=== PATIENT | male | born 1955 | race Caucasian/White ===

== ENCOUNTER 2019-09-11 12:55 | Inpatient (IN) | payer BC ==
[2019-09-11] MEDS ORDERED: Sodium Chloride 0.9% 10 ML ONE (13:35)
[2019-09-11 13:46] LABS: #Eosinphils 0.1 thou/uL (0.0-0.7); #Lymphocytes 1.4 thou/uL (1.20-3.40); #Monocytes 0.6 thou/uL (0.11-0.59); #Neutrophils 3.4 thou/uL (1.40-6.50); %Basophils 0.8 % (0.0-1.0); %Eosinophils 2.2 % (0.0-10.0); %Lymphocytes 25.5 % (21.0-51.0); %Monocytes 10.4 % (0.0-10.0); %Neutrophils 61.1 % (42.0-75.0); Hemoglobin 12.1 g/dL (14.0-18.0); Mean Corpuscular HGB CONC 32.9 g/dL (32.0-36.0); Mean Corpuscular Hemoglobin 31.1 pg (27.0-31.0); Mean Corpuscular Volume 94.5 fL (78.0-98.0); Mean Platelet Volume 5.9 fL (7.4-10.4); Platelet Count 379 thou/uL (130-400); RBC Distribution Width 12.8 % (11.5-14.5); Red Blood Cell (RBC) Count 3.87 mill/uL (4.70-6.10); White Blood Cell (WBC) Count 5.5 thou/uL (4.8-10.8)
[2019-09-11] MEDS ORDERED: Piperacillin/Tazobactam 3.375 GM in Sodium Chloride 0.9% 100 ML IVPB SCH (14:00)
[2019-09-11 14:08] LABS: ALT (SGPT) 16 U/L (8-55); AST (SGOT) 17 U/L (5-34); Albumin 3.7 g/dL (3.4-4.8); Alkaline Phosphatase 146 U/L (40-110); Anion Gap 12 mmol/L (10-20); BUN (Urea Nitrogen) 9 mg/dL (8.4-25.7); Bilirubin, Total 0.2 mg/dL (0.2-1.2); Calc. Creatinine Clearance 0 mL/min (70-130); Calcium 8.8 mg/dL (7.8-10.44); Carbon Dioxide 27 mmol/L (23-31); Chloride 102 mmol/L (98-107); Estimated GFR-MDRD 87; Glucose 113 mg/dL (80-115); Protein, Total 7.7 g/dL (5.8-8.1); Sodium 137 mmol/L (136-145)
[2019-09-11 14:11] VITALS: BMI 21.8
[2019-09-11] MEDS ORDERED: Vancomycin HCl 1 GM in Premix Bag 1 BAG IVPB SCH (15:00)
[2019-09-11] MEDS ORDERED: PROPOFOL 200 MG/20 ML VIAL ONE (16:23)
[2019-09-11] MEDS ORDERED: Lidocaine 1% PF 5 ML VIAL ONE (16:23)
[2019-09-11] MEDS ORDERED: Ondansetron PF 4 MG/2 ML Vial ONE (16:23)
[2019-09-11] MEDS ORDERED: Dexamethasone 20 MG/5 ML VIAL ONE (16:23)
[2019-09-11] MEDS ORDERED: Piperacillin/Tazobactam 3.375 GM VIAL ONE (19:46)
[2019-09-11] MEDS ORDERED: Sodium Chloride 0.9% 100 ML ONE (19:47)
[2019-09-11] MEDS ORDERED: Midazolam HCl 2 mg/2 ml Vial ONE (20:25)
[2019-09-11] MEDS ORDERED: Fentanyl 100 MCG/2 ML VIAL ONE ×3 (20:25→22:45)
[2019-09-11] MEDS ORDERED: Neomycin-Polymyxin 1 ML AMP ONE (20:34)
[2019-09-11] MEDS ORDERED: Ondansetron HCl/PF 4 MG/2 ML Vial IVP PRN (22:17)
[2019-09-11] MEDS ORDERED: Meperidine HCl/PF 25 MG/ML VIAL SLOW IVP PRN (22:17)
[2019-09-11] MEDS ORDERED: Promethazine HCl 25 MG/ML VIAL SLOW IVP PRN (22:17)
[2019-09-11] MEDS ORDERED: HYDROcodone/Acetaminophen 10/325 mg Tablet PO PRN (22:19)
[2019-09-11] MEDS ORDERED: Ondansetron ODT 4 MG TAB PO PRN (22:20)
[2019-09-11] MEDS ORDERED: Fentanyl 100 MCG/2 ML VIAL SLOW IVP PRN (22:20)
[2019-09-11] MEDS ORDERED: Ondansetron PF 4 MG/2 ML Vial IVP PRN (22:20)
[2019-09-11] MEDS ORDERED: Acetaminophen 500 MG TAB PO PRN (22:21)
[2019-09-12] MEDS: Piperacillin/Tazobactam 3.375 GM in Sodium Chloride 0.9% 100 ML IVPB SCH ×6 (00:23→18:42)
[2019-09-12] MEDS: HYDROcodone/Acetaminophen 10/325 mg Tablet PO PRN ×2 (08:20→18:42)
[2019-09-12] MEDS: Vancomycin HCl 1 GM in Premix Bag 1 BAG IVPB SCH ×2 (08:21→20:01)
[2019-09-12] MEDS ORDERED: FLU VACC QS2019-20(6MOS UP)/PF 60 MCG/0.5 ML SYRINGE IM ONE (09:00)
--- NOTE | 2019-09-12 18:35 | OP ---
DATE OF PROCEDURE: 09/11/2019 PREOPERATIVE DIAGNOSIS: Right anterior tibial wound dehiscence. POSTOPERATIVE DIAGNOSIS: Right anterior tibial wound dehiscence. PROCEDURES PERFORMED: 1. Irrigation and debridement of right anterior tibial wound, (skin, subcutaneous tissue, and muscle). 2. Musculotendinous soft tissue advancement over exposed right anterior tibial plate. ANESTHESIA: General. TRUCK DRIVING: Carol Rojas PA-C. TOURNIQUET TIME: Zero. ESTIMATED BLOOD LOSS: 10 mL. COMPLICATIONS: None. DRAINS: None. SPECIMEN: Swab sent for Gram stain, culture, and sensitivity. OUTCOME: Successful debridement of necrotic tissue. INDICATIONS: Mr. Cortes is a pleasant 63-year-old gentleman, status post a right comminuted proximal tibia fracture, which was treated initially with a spanning external fixator and fasciotomies for compartment syndrome. The patient subsequently had his fasciotomy skin incisions closed and was converted to a plate with the external fixator removed. Over the last few days, the patient has had some increasing drainage and breakdown of one of the skin incision sites from the original external fixator. Upon arrival in our clinic today, he was found to have an area that measured approximately 2 cm in length and a centimeter wide of fibrinous exudate and some drainage. As such, the patient was taken the operating room now for exploration and debridement of this wound. Informed consent has been obtained and I believe, all questions answered. DESCRIPTION OF PROCEDURE: The patient was brought to the operating room and a time-out performed followed by induction of general anesthesia. Next, he was positioned supine on the OR table and a sterile prep and drape was performed of the right lower extremity. This 2 x 1 cm area was remarkable for significant fibrinous exudate, but no purulent material was encountered. The exudate was sharply debrided. This including skin, subcutaneous tissue, down to the level of the musculotendinous region of the tibialis anterior. Once all of the fibrinous exudate had been sharply debrided, the plate was visible along this lateral cortex of the midshaft tibia. No purulent material was encountered. There was serous fluid encountered. This was swabbed and sent for Gram stain, culture, and sensitivity. Following debridement of all the nonviable tissue, there was bleeding of the skin edges and bleeding at the base; however, still this exposed plate. As such, the tibialis anterior tendon was advanced and stitched to the periosteum and fascial rim off the subcutaneous crest of the tibia. This performed to get some soft tissue closure over the plate. At the completion of this, a damp-to-dry dressing was then placed in this void, that was left over with plans to convert the patient to a wound VAC tomorrow. Following application of a damp-to-dry dressing, a bulky dressing applied to the leg and then the patient was transferred to recovery room in stable condition. There were no complications. He tolerated the procedure well. Job ID: [id number]
[2019-09-13 08:18] LABS: #Eosinphils 0.2 thou/uL (0.0-0.7); #Lymphocytes 1.9 thou/uL (1.20-3.40); #Monocytes 0.6 thou/uL (0.11-0.59); #Neutrophils 3.5 thou/uL (1.40-6.50); %Basophils 0.8 % (0.0-1.0); %Eosinophils 3.8 % (0.0-10.0); %Lymphocytes 30.4 % (21.0-51.0); %Monocytes 9.3 % (0.0-10.0); %Neutrophils 55.7 % (42.0-75.0); Hemoglobin 12.1 g/dL (14.0-18.0); Mean Corpuscular HGB CONC 32.2 g/dL (32.0-36.0); Mean Corpuscular Hemoglobin 30.6 pg (27.0-31.0); Mean Platelet Volume 6.2 fL (7.4-10.4); Platelet Count 338 thou/uL (130-400); RBC Distribution Width 12.7 % (11.5-14.5); Red Blood Cell (RBC) Count 3.94 mill/uL (4.70-6.10); White Blood Cell (WBC) Count 6.4 thou/uL (4.8-10.8)
[2019-09-13] MEDS: Piperacillin/Tazobactam 3.375 GM in Sodium Chloride 0.9% 100 ML IVPB SCH ×2 (18:13→23:07)
[2019-09-13] MEDS: traMADol HCl 50 MG TAB PO PRN (23:13)
[2019-09-14] MEDS: Piperacillin/Tazobactam 3.375 GM in Sodium Chloride 0.9% 100 ML IVPB SCH (05:23)
[2019-09-14 07:27] VITALS: TEMP 98
[2019-09-14] MEDS ORDERED: Doxycycline 100 MG CAP PO SCH ×4 (11:00→21:00)
[2019-09-14] MEDS ORDERED: Rifampin 300 MG CAP PO SCH ×2 (11:15→21:00)
[2019-09-14 11:27] VITALS: BP 124/73
[2019-09-14] MEDS: traMADol HCl 50 MG TAB PO PRN (11:42)
[2019-09-15] MEDS ORDERED: Rifampin 300 MG CAP PO ONE (22:00)
--- NOTE | 2019-09-17 04:01 | PQF ---
RAJESH PATTERSON ANTHONY, MD [id number] [facility] A [id number] CLINICAL DOCUMENTATION CLARIFICATION FORM: POST DISCHARGE Addendum to original discharge summary date: ____ Late entry note date: __ DATE: 09/17/19 ATTN:Katya Solorzano Please exercise your independent, professional judgment in responding to the clarification form. Clinical indicators are provided on the bottom of this form for your review Please check appropriate box(s): [ ] Excisional Debridement: [ ] Excised [ ] Cut away [ ] Other: Depth / layer: (deepest layer of debridement): [ ] Skin[ ] SubQ Tissue [ ] Fascia [ ] Muscle [ ] Tendon [ ] Bone Appearance of wound: (e.g., down to fresh bleeding tissue, etc.)___ Margins: (please specify): / x x Instruments used: [ ] Scissors [ ] Scalpel [ ] Curette [ ] Soft tissue clipper [ ] Other: [ ] Non-excisional Debridement: (Removal by flushing, brushing, chemical, or washing) Depth / layer: (deepest layer of debridement): [ ] Skin[ ] Subcutaneous [ ] Fascia [ ] Muscle [ ] Tendon [ ] Bone [ ] Incision and Drainage only (No Debridement): Depth:[ ] Skin [ ] Subcutaneous [ ] Fascia [ ] Muscle [ ] Tendon [ ] Bone [ ] Other procedure diagnosis [ ] Unable to determine For continuity of documentation, please document condition throughout progress notes and discharge summary. Thank You. CLINICAL INDICATORS - SIGNS / SYMPTOMS / LABS OP Note 09/11 "the exudate was sharply debrided" OP Note 09/11 "This including skin,subcutaneous tissue, down to the level of musculotenious region" OP Note 09/11 "patient has had some increasing drainage and breakdonw of one of the skin incision sites from the original external fixator" OP Note 10 "Irrigation and debridement of tibial wound (skin, subcutaneous tissue and muscle)" RISK FACTORS OP Note 09/11-63 years old OP Note 09/11-s/p external fixator OP Note 09/11-tibial wound dehiscence TREATMENTS: OP Note 09/11-Irrigation and debridement (This form is maintained as a part of the permanent medical record) 2015 [email or web address] All Rights Reserved [email or web address] [not provided] MTDD
--- NOTE | 2019-09-17 14:39 | DIS ---
DATE OF ADMISSION: 09/11/2019 DATE OF DISCHARGE: 09/14/2019 This is Carol Rojas PA-C dictating a report for Rashad Aldana MD. CONSULTANTS: Include Wound Care. PREOPERATIVE DIAGNOSIS: Right anterior tibial wound dehiscence. POSTOPERATIVE DIAGNOSIS: Right anterior tibial wound dehiscence. PROCEDURES PERFORMED: 1. Irrigation and debridement of right anterior tibial wound, including skin, subcutaneous tissue, and muscle. 2. Musculotendinous soft tissue advancement over exposed right anterior tibial plate. BRIEF HOSPITAL COURSE: This is a 63-year-old gentleman, who is status post right comminuted tibial fracture, who was initially treated with a spanning external fixator and fasciotomies for compartment syndrome. The patient subsequently had his fasciotomy skin incisions closed and then was converted to a plate with the external fixator removed. Over the last few days, the patient had some increasing drainage and breakdown of one of the skin incision sites from the original external fixator. Upon arrival to our clinic on the date of admission, the patient was found to have an area that measured approximately 2 cm in length and a centimeter wide of fibrinous exudate and some drainage. The patient was taken to the operating room for exploration and debridement of the wound. He did well in the operative suite. Postoperatively, he was admitted to [place] [address] surgical floor, where he received postoperative antibiotics and we awaited his cultures to grow out. He ended up growing out Staph aureus and was placed on p.o. antibiotics for discharge home. No complications were incurred during this hospital stay. The patient remained touchdown weightbearing in a boot for his right healing tibia fracture. The patient had a wound VAC during his hospital course. This was approved for continued home treatment. DISCHARGE DISPOSITION: Home. DISCHARGE CONDITION: Stable. DISCHARGE MEDICATIONS: See JAN. DISCHARGE INSTRUCTIONS: The patient will take antibiotics as prescribed. He was discharged with doxycycline and rifampin. He will keep his wound VAC intact until followup. We will see him in the Orthopedic Clinic in 1 week. Job ID: [id number]
== END 2019-09-14 12:10 | disposition home or self-care (01) | DRG 909 ==
LOC: SDC/OP 12:55 → 3SE 13:01 → SURG A 23:59 → SDC/OP 23:59
PROVIDERS: ADMIT Orthopaedic Surgery; ATTEND Orthopaedic Surgery
PROC: 0LXN0ZZ Transfer Right Lower Leg Tendon, Open Approach (ICD-10-PCS; principal; 2019-09-11)
PROC: 0KDS0ZZ Extraction of Right Lower Leg Muscle, Open Approach (ICD-10-PCS; 2019-09-11)
PROC: 3E02340 Introduction of Influenza Vaccine into Muscle, Percutaneous Approach (ICD-10-PCS; 2019-09-12)
DX: T81.30XA Disruption of wound, unspecified, initial encounter (principal); Y83.8 Other surgical procedures as the cause of abnormal reaction of the patient, or of later complication, without mention of misadventure at the time of the procedure; Z23 Encounter for immunization; B95.61 Methicillin susceptible Staphylococcus aureus infection as the cause of diseases classified elsewhere; E78.5 Hyperlipidemia, unspecified
CPT/HCPCS: 36415; 80053; 85025; 87070; 87077; 87186; 87205; J1100; J2001; J2250; J2405; J2543; J2704; J3010; J3370; J3490

== ENCOUNTER 2019-09-16 13:43 | Emergency (ER) | payer BC ==
--- NOTE | 2019-09-16 14:54 | ULT ---
ULTRASOUND DOPPLER DUPLEX VENOUS RIGHT LOWER EXTREMITY: DATE: 09/16/2019 HISTORY: 63-year-old male with right lower extremity swelling and edema. TECHNIQUE: Grayscale, color-flow, and spectral analysis, of major veins of right lower extremity. FINDINGS: There is demonstration of blood flow with normal compressibility, of the right common femoral, profun da femoral, greater saphenous, femoral, popliteal, and posterior tibial, veins. In the soft tissues at the medial knee, corresponding to the palpable lump, there is an irregularly-shaped heterogeneousl y mildly hypoechoic solid mass with no internal blood flow measuring approximately 3.5 x 3.5 x 1.5 cm. There is surrounding soft tissue edema. IMPRESSION: 1. No deep venous thrombosis of right lower extremity. 2. Mass in the soft tissues at medial aspect of knee surrounded by soft tissue edema. Given history o f recent surgery, this is presumed to represent hematoma.
[2019-09-16 15:25] LABS: #Basophils 0.1 thou/uL (0.0-0.2); #Eosinphils 0.3 thou/uL (0.0-0.7); #Lymphocytes 1.3 thou/uL (1.20-3.40); #Monocytes 0.6 thou/uL (0.11-0.59); #Neutrophils 4.3 thou/uL (1.40-6.50); %Eosinophils 4.8 % (0.0-10.0); %Lymphocytes 19.3 % (21.0-51.0); %Neutrophils 64.9 % (42.0-75.0); Hemoglobin 12.6 g/dL (14.0-18.0); Mean Corpuscular HGB CONC 32.4 g/dL (32.0-36.0); Mean Corpuscular Hemoglobin 29.8 pg (27.0-31.0); Mean Corpuscular Volume 92.1 fL (78.0-98.0); Mean Platelet Volume 5.7 fL (7.4-10.4); Platelet Count 338 thou/uL (130-400); RBC Distribution Width 12.9 % (11.5-14.5); Red Blood Cell (RBC) Count 4.22 mill/uL (4.70-6.10); White Blood Cell (WBC) Count 6.6 thou/uL (4.8-10.8)
[2019-09-16 15:37] LABS: Anion Gap 16 mmol/L (10-20); BUN (Urea Nitrogen) 12 mg/dL (8.4-25.7); Calc. Creatinine Clearance 0 mL/min (70-130); Calcium 9.4 mg/dL (7.8-10.44); Carbon Dioxide 25 mmol/L (23-31); Chloride 103 mmol/L (98-107); Estimated GFR-MDRD Greater than 90; Glucose 128 mg/dL (80-115); Potassium 3.5 mmol/L (3.5-5.1); Sodium 140 mmol/L (136-145)
== END 2019-09-16 16:45 | disposition home or self-care (01) ==
LOC: SCSER 13:43
DX: M79.81 Nontraumatic hematoma of soft tissue (principal); E78.5 Hyperlipidemia, unspecified; E78.00 Pure hypercholesterolemia, unspecified; Z79.82 Long term (current) use of aspirin; Z79.899 Other long term (current) drug therapy; Z79.2 Long term (current) use of antibiotics
CPT/HCPCS: 36415; 80048; 85025

== ENCOUNTER 2019-09-18 09:53 | Outpatient (CLI) | payer BC ==
[~2019-09-18 09:53] MED LIST: Sodium Chloride 0.9% 15 ML NEB ONE
== END 2019-09-18 09:54 | disposition home or self-care (01) ==
LOC: WCC 09:53
PROVIDERS: ATTEND Family Medicine
DX: T81.30XD Disruption of wound, unspecified, subsequent encounter (principal)
CPT/HCPCS: A4218

== ENCOUNTER 2019-09-21 14:29 | Outpatient (CLI) | payer BC ==
[2019-09-21] MEDS ORDERED: Sodium Chloride 0.9% 15 ML NEB ONE (22:43)
== END 2019-09-21 14:30 | disposition home or self-care (01) ==
LOC: WCC 14:29
PROVIDERS: ATTEND Family Medicine
DX: T81.89XD Other complications of procedures, not elsewhere classified, subsequent encounter (principal)
CPT/HCPCS: 97605; A4218

== ENCOUNTER 2019-09-24 11:06 | Outpatient (CLI) | payer BC ==
--- NOTE | 2019-09-24 13:05 | HP ---
HISTORY OF PRESENT ILLNESS: Mr. Jared Cortes is a very pleasant 63-year-old gentleman, who presents to the Wound Center for evaluation of a wound of the right anterior lower leg subsequent to surgery on 09/11/2019 for right anterior tibial wound dehiscence. The patient underwent the preceding procedure by Dr. Rashad Aldana, and subsequent to surgery, negative pressure therapy was initiated. Upon the patient's discharge from [facility], the patient was referred to the Wound Center for assistance with dressing changes of the wound VAC. Previously, the patient had undergone right lower leg fasciotomy followed by ORIF of a right proximal tibia fracture in June of this year for a crush injury. PAST MEDICAL HISTORY: 1. Benign prostatic hypertrophy. 2. Allergic rhinitis. PAST SURGICAL HISTORY: 1. TURP. 2. Right knee surgery. 3. Right lower leg fasciotomy. 4. ORIF of right proximal tibia fracture. 5. Surgery for right anterior tibial wound dehiscence as per HPI. MEDICATIONS: 1. Simvastatin. 2. VESIcare. 3. Vitamin D. 4. Vitamin C. ALLERGIES: NO KNOWN DIAGNOSED ALLERGIES. SOCIAL HISTORY: Negative for tobacco use. Social history is also significant for the consumption of one glass of wine per day for the past 40 years. FAMILY HISTORY: Negative for diabetes mellitus or coronary artery disease. PHYSICAL EXAMINATION: VITAL SIGNS: Temperature 97.7, pulse 93, respirations 18, and blood pressure 119/59. GENERAL: A 63-year-old gentleman, lying on table in examination room, in no acute distress. HEENT: Normocephalic and atraumatic. NECK: No nuchal rigidity. CHEST: Clear to auscultation. CV: Regular rate and rhythm. ABDOMEN: Soft. EXTREMITIES: A wound of the right anterior lower leg is present, which measures approximately 2.4 x 1.3 cm. Granulation tissue is present within the wound margins. Tendon is visible within the wound margins. No purulent drainage is associated with the wound. No erythema of the skin surrounding the wound is present. No maceration of the skin of the periwound is noted. [id number] edema of the right foot and lower leg is present on exam today. NEURO: Grossly nonfocal. ASSESSMENT AND PLAN: 1. Right anterior lower leg wound as described above. Negative pressure therapy will be continued with dressing changes of the wound VAC here in the Wound Center. No antibiotics will be prescribed today based upon the appearance of the wound. The patient will be seen by Orthopedic Surgery later this week. I will see Mr. Cortes again in 2 weeks. The patient and his understands and are in agreement with the preceding treatment plan. 2. Benign prostatic hypertrophy. 3. Allergic rhinitis. Job ID: [id number]
[2019-09-24] MEDS ORDERED: Sodium Chloride 0.9% 15 ML NEB ONE (15:00)
== END 2019-09-24 11:07 | disposition home or self-care (01) ==
LOC: WCC 11:06
PROVIDERS: ATTEND Family Medicine
DX: T81.89XD Other complications of procedures, not elsewhere classified, subsequent encounter (principal); J30.9 Allergic rhinitis, unspecified; N40.0 Benign prostatic hyperplasia without lower urinary tract symptoms
CPT/HCPCS: A4218

== ENCOUNTER 2019-09-27 08:31 | Outpatient (CLI) | payer BC ==
[2019-09-27] MEDS ORDERED: Sodium Chloride 0.9% 15 ML NEB ONE (16:23)
== END 2019-09-27 08:32 | disposition home or self-care (01) ==
LOC: WCC 08:31
PROVIDERS: ATTEND Family Medicine
DX: T81.89XD Other complications of procedures, not elsewhere classified, subsequent encounter (principal)
CPT/HCPCS: 97605; A4218

== ENCOUNTER 2019-10-02 12:57 | Outpatient (CLI) | payer BC | END 2019-10-02 12:58 | disposition home or self-care (01) | LOC: WCC 12:57 | PROVIDERS: ATTEND Family Medicine | DX: T81.89XD Other complications of procedures, not elsewhere classified, subsequent encounter (principal) | CPT/HCPCS: A4218 ==

== ENCOUNTER 2019-10-05 11:35 | Outpatient (CLI) | payer BC | END 2019-10-05 11:36 | disposition home or self-care (01) | LOC: WCC 11:35 | PROVIDERS: ATTEND Family Medicine | DX: T81.89XD Other complications of procedures, not elsewhere classified, subsequent encounter (principal) | CPT/HCPCS: 97605; A4218 ==

== ENCOUNTER 2019-10-09 16:17 | Outpatient (CLI) | payer BC | END 2019-10-09 16:18 | disposition home or self-care (01) | LOC: WCC 16:17 | PROVIDERS: ATTEND Family Medicine | DX: T81.89XD Other complications of procedures, not elsewhere classified, subsequent encounter (principal) | CPT/HCPCS: 97605; A4218 ==

== ENCOUNTER 2019-10-12 13:54 | Outpatient (CLI) | payer BC ==
[2019-10-12] MEDS ORDERED: Sodium Chloride 0.9% 15 ML NEB ONE (15:00)
== END 2019-10-12 13:55 | disposition home or self-care (01) ==
LOC: WCC 13:54
PROVIDERS: ATTEND Family Medicine
DX: S81.031D Puncture wound without foreign body, right knee, subsequent encounter (principal)
CPT/HCPCS: A4218

== ENCOUNTER 2019-10-15 11:28 | Outpatient (CLI) | payer BC ==
[2019-10-15] MEDS ORDERED: Sodium Chloride 0.9% 15 ML NEB ONE (15:00)
== END 2019-10-15 11:29 | disposition home or self-care (01) ==
LOC: WCC 11:28
PROVIDERS: ATTEND Family Medicine
DX: T81.89XD Other complications of procedures, not elsewhere classified, subsequent encounter (principal)
CPT/HCPCS: A4218

== ENCOUNTER 2019-10-18 15:55 | Outpatient (CLI) | payer BC ==
--- NOTE | 2019-10-18 11:09 | PRG ---
DATE OF SERVICE: 10/18/2019 HISTORY: Mr. Jared Cortes is a very pleasant 63-year-old gentleman, who presents to the Wound Center for evaluation of a wound of the right anterior lower leg subsequent to surgery on 09/11/2019 for right anterior tibial wound dehiscence. The patient underwent preceding procedure by Dr. Rashad Aldana and subsequent to surgery, negative pressure therapy was initiated. Upon the patient's discharge from [facility], the patient was referred to the Wound Center for assistance with dressing changes of the wound VAC. Previously, the patient had undergone right lower leg fasciotomy followed by ORIF of a right proximal tibia fracture in June of this year for a crush injury. PHYSICAL EXAMINATION: VITAL SIGNS: Temperature 98.3, pulse 78, respirations 16, and blood pressure 132/73. EXTREMITIES: A wound of the right anterior lower leg is present which measures approximately 1.3 x 0.5 cm. Granulation tissue is present within the wound margins, no tenderness visible within the wound margins as was visible at the time of the patient's visit on 09/24/2019. No purulent drainage is associated with the wound. No erythema of the skin surrounding the wound is present. No maceration of the skin of the periwound is noted. A dorsalis pedis pulse and posterior tibial pulse are both palpable on the right. No significant edema of the right foot or lower leg is present on exam today. ASSESSMENT AND PLAN: 1. Right anterior lower leg wound as described above. The wound has been viewed by Orthopedic Surgery and negative pressure therapy will be discontinued today. Promogran followed by Hydrofera Blue, ABD, and 3M Coban 2 Layer Compression System will be applied to the wound of the right anterior lower leg today. The patient will be receiving the preceding dressing changes on a weekly basis here in the Wound Center. I will see Mr. Cortes again in 2 weeks. 2. Benign prostatic hypertrophy. 3. Allergic rhinitis. Job ID: [id number]
[2019-10-18] MEDS ORDERED: Sodium Chloride 0.9% 15 ML NEB ONE (17:03)
== END 2019-10-18 15:56 | disposition home or self-care (01) ==
LOC: WCC 15:55
PROVIDERS: ATTEND Family Medicine
DX: T81.89XD Other complications of procedures, not elsewhere classified, subsequent encounter (principal); N40.0 Benign prostatic hyperplasia without lower urinary tract symptoms; J30.9 Allergic rhinitis, unspecified
CPT/HCPCS: A4218

== ENCOUNTER 2019-10-23 09:52 | Outpatient (CLI) | payer BC ==
[2019-10-23] MEDS ORDERED: Sodium Chloride 0.9% 15 ML NEB ONE (14:26)
== END 2019-10-23 09:53 | disposition home or self-care (01) ==
LOC: WCC 09:52
PROVIDERS: ATTEND Family Medicine
DX: T81.89XD Other complications of procedures, not elsewhere classified, subsequent encounter (principal)
CPT/HCPCS: A4218

== ENCOUNTER 2019-10-29 12:16 | Outpatient (CLI) | payer BC ==
--- NOTE | 2019-10-29 11:30 | PRG ---
DATE OF SERVICE: 10/29/2019 HISTORY: Mr. Jared Cortes is a very pleasant 63-year-old gentleman, who presents to the Wound Center for evaluation of a wound of the right anterior lower leg subsequent to surgery on 09/11/2019 for right anterior tibial wound dehiscence. The patient underwent the preceding procedure by Dr. Rashad Aldana, and subsequent to surgery, negative pressure therapy was initiated. Upon the patient's discharge from [facility], the patient was referred to the Wound Center for assistance with dressing changes of the wound VAC. Previously, the patient had undergone right lower leg fasciotomy followed by ORIF of a right proximal tibia fracture in June of this year for a crush injury. PHYSICAL EXAMINATION: VITAL SIGNS: Temperature 97.8, pulse 82, respirations 17, blood pressure 134/72. EXTREMITIES: A wound of the right anterior lower leg is present, which measures approximately 1.0 x 0.4 cm. Granulation tissue is present within the wound margins. No tendon is visible within the wound margins as noted at the time of the patient's visit on 09/24/2019. No purulent drainage is associated with the wound. No erythema of the skin surrounding the wound is present. No maceration of the skin of the periwound is noted. A dorsalis pedis pulse and posterior tibial pulse are both easily palpable on the right. No significant edema of the right foot or lower leg is present on exam today. ASSESSMENT AND PLAN: 1. Right anterior lower leg wound as described above. Dressing changes of Promogran followed by Hydrofera Blue, ABD, Webril, and the 3M Coban 2 Layer Compression System will be continued. The patient will be receiving the preceding dressing changes on a weekly basis here in the Wound Center. The patient will be seen by Orthopedic Surgery in 1 week. I will see Mr. Cortes again in 2 weeks. 2. Benign prostatic hypertrophy. 3. Allergic rhinitis. Job ID: [id number]
[2019-10-29] MEDS ORDERED: Sodium Chloride 0.9% 15 ML NEB ONE (16:48)
== END 2019-10-29 12:17 | disposition home or self-care (01) ==
LOC: WCC 12:16
PROVIDERS: ATTEND Family Medicine
DX: T81.89XD Other complications of procedures, not elsewhere classified, subsequent encounter (principal); N40.0 Benign prostatic hyperplasia without lower urinary tract symptoms; J30.9 Allergic rhinitis, unspecified
CPT/HCPCS: A4218

== ENCOUNTER 2020-01-15 13:56 | Observation (INO) | payer BC ==
[~2020-01-15 13:56] MED LIST changes: +EPHEDRINE 25 MG/5 ML SYRINGE ONE; +Lidocaine 1% PF 5 ML VIAL ONE; +PROPOFOL 200 MG/20 ML VIAL ONE; -Sodium Chloride 0.9% 15 ML NEB ONE
[2020-01-15] MEDS ORDERED: Midazolam HCl 2 mg/2 ml Vial ONE (16:01)
[2020-01-15] MEDS ORDERED: Fentanyl 100 MCG/2 ML VIAL ONE ×2 (16:01→17:29)
[2020-01-15] MEDS ORDERED: Neomycin-Polymyxin 1 ML AMP ONE (16:05)
[2020-01-15] MEDS ORDERED: traMADol HCl 50 MG TAB PO PRN ×2 (17:16)
[2020-01-15] MEDS ORDERED: Morphine 2 MG/ML SYRINGE SLOW IVP PRN (17:16)
[2020-01-15] MEDS ORDERED: Acetaminophen/Codeine 30-300mg Tablet PO PRN ×2 (17:16)
[2020-01-15] MEDS ORDERED: Communication Order-Pharmacy FS SCH (17:30)
[2020-01-15 19:22] VITALS: BMI 22.2
[2020-01-15] MEDS: Vancomycin HCl 1.25 GM in Sodium Chloride 0.9% 250 ML 250 ML IVPB SCH (20:23)
[2020-01-16 06:21] LABS: #Basophils 0.1 thou/uL (0.0-0.2); #Eosinphils 0.3 thou/uL (0.0-0.7); #Lymphocytes 1.3 thou/uL (1.20-3.40); #Monocytes 0.5 thou/uL (0.11-0.59); #Neutrophils 2.8 thou/uL (1.40-6.50); %Basophils 1.8 % (0.0-1.0); %Eosinophils 5.2 % (0.0-10.0); %Lymphocytes 25.6 % (21.0-51.0); %Monocytes 10.2 % (0.0-10.0); %Neutrophils 57.3 % (42.0-75.0); Hemoglobin 13.2 g/dL (14.0-18.0); Mean Corpuscular HGB CONC 32.1 g/dL (32.0-36.0); Mean Corpuscular Hemoglobin 30.9 pg (27.0-31.0); Mean Corpuscular Volume 96.2 fL (78.0-98.0); Mean Platelet Volume 6.6 fL (7.4-10.4); Platelet Count 245 thou/uL (130-400); RBC Distribution Width 12.5 % (11.5-14.5); Red Blood Cell (RBC) Count 4.26 mill/uL (4.70-6.10)
[2020-01-16 07:40] VITALS: BP 127/78; TEMP 98.3
[2020-01-16] MEDS: Vancomycin HCl 1.25 GM in Sodium Chloride 0.9% 250 ML 250 ML IVPB SCH (10:58)
--- NOTE | 2020-01-17 12:44 | OP ---
DATE OF PROCEDURE: 01/15/2020 PREOPERATIVE DIAGNOSIS: Abscess, right proximal lower leg. POSTOPERATIVE DIAGNOSIS: Subcutaneous abscess of right proximal medial lower leg. PROCEDURE PERFORMED: Incision and drainage of right leg abscess. ANESTHESIA: General. TOURNIQUET TIME: Zero. ESTIMATED BLOOD LOSS: 5 mL. COMPLICATIONS: None. IMPLANTS: None. DRAINS: None. SPECIMEN: Swab sent for Gram stain, culture, and sensitivity. OUTCOME: Successful drainage of subcutaneous abscess with open packing. INDICATIONS FOR PROCEDURE: Mr. Cortes is a 64-year-old gentleman who is status post crushing injury to right lower leg with tibial fracture. The patient also is status post anterior compartment arthroplasty and medial compartment arthroplasty of this same knee. The patient has developed a small focal red area at the proximal medial aspect of the lower leg. This does not appear to be communicating with the hardware. It is very focal and measures approximately 2.5 cm round. Two days ago, the patient developed some drainage from the small area and as such, he is now taken to the operating room for irrigation and debridement. It should be noted that in the office, an aspirate of this site was performed and it did show on Gram stain gram-positive coccus in clusters. DESCRIPTION OF PROCEDURE: The patient was brought to the operating room and a time-out performed followed by induction of general anesthesia. The patient was positioned supine, and then a sterile prep and drape was performed of the right lower extremity. A small focal red area at the proximal medial lower leg was then incised for a distance of 1 inch. With incision, very minimal purulent material was encountered. This was swabbed and sent for Gram stain, culture, and sensitivity. There was found to be some necrotic devitalized tissue below the surface of the skin. This was removed with a combination of curette and rongeur. Once we got down to the level of the fascia, there was no violation of the fascia and this fascia appeared completely healthy. It was felt that this was just a small subcutaneous abscess with no tracking deeper. As such, it was irrigated with 2 L of normal saline using bulb syringe and then it was packed with a gauze dressing. A dry gauze placed over a saline damp gauze and then Kerlix and Hesham wrap dressing applied to the knee. The patient was then transferred to the recovery room in stable condition. There were no complications. He tolerated the procedure well. Job ID: [id number]
== END 2020-01-16 13:10 | disposition home or self-care (01) ==
LOC: SDC 13:56 → T4-B 17:22
PROVIDERS: ADMIT Orthopaedic Surgery; ATTEND Orthopaedic Surgery
PROC: 0J9N0ZZ Drainage of Right Lower Leg Subcutaneous Tissue and Fascia, Open Approach (ICD-10-PCS; principal; 2020-01-15)
DX: L02.415 Cutaneous abscess of right lower limb (principal); S82.141D Displaced bicondylar fracture of right tibia, subsequent encounter for closed fracture with routine healing; Z79.899 Other long term (current) drug therapy; X58.XXXD Exposure to other specified factors, subsequent encounter
CPT/HCPCS: 36415; 85025; 85060; 85652; 86140; 87070; 87077; 87186; 87205; 89051; 96374; 96376; G0378; J0690; J2001; J2250; J2704; J3010; J3370; J7050

== ENCOUNTER 2020-04-10 13:53 | Outpatient (CLI) | payer BC ==
--- NOTE | 2020-04-10 14:19 | RAD ---
Radiograph right leg tibia-fibula 2 views: 04/10/2020 HISTORY: 64-year-old male with history of fracture presents with cellulitis of right leg Comparison: 06/25/2019 FINDINGS: There has been interval placement of metallic plate and screws fixating the previously demonstrated c omminuted fracture of proximal tibial metaphysis and metadiaphysis. There is late stage exuberant callus at the location of the previous fracture. Fracture lucency no longer visible. The fibular prox imal fracture has also undergone healing changes. Unicompartmental arthroplasty hardware at the medial aspect of the knee. Tracks from previously removed screws at the tibial diaphysis. No subcutan eous emphysema. IMPRESSION: Status post open reduction internal fixation of proximal tibial metaphyseal fracture. Late stage exub erant callus
== END 2020-04-10 13:54 | disposition home or self-care (01) ==
LOC: BICRAD 13:53
PROVIDERS: ATTEND Internal Medicine Infectious Disease
DX: L03.115 Cellulitis of right lower limb (principal); Z98.890 Other specified postprocedural states